=== PATIENT | female | born 1975 | race Caucasian/White ===

== ENCOUNTER 2022-12-29 17:10 | Emergency (ER) | payer BC, SELFPAY ==
--- NOTE | ~2022-12-29 | XR_ITS ---
AP and oblique views of the left ribs, and PA and lateral chest radiographs Clinical History: Pain Findings: No rib fracture is seen. Osseous alignment is anatomic. Lungs are clear, without focal cons olidation or pleural effusion. Cardiomediastinal contour is within normal limits. Soft tissues are un remarkable. Impression: No rib fracture is seen. Reviewed, dictated and finalized at [facility]. Impression: No rib fracture is seen.
[2022-12-29 17:12] VITALS: BP 156/82; PULSE 85; RESP 18; TEMP 36.8; O2SAT 100
--- NOTE | 2022-12-29 17:24 | ECG_ITS ---
Measurements Intervals [place] Rate: 85 P: 74 DE: 133 QRS: 62 QRSD: 69 T: 55 QT: 345 QTc: 412 Interpretive Statements SINUS RHYTHM NORMAL ECG NO PREVIOUS ECG AVAILABLE FOR COMPARISON Electronically Signed On 12-30-2022 6:59:39 CDT by Jez Garcia D.O.
--- NOTE | 2022-12-29 17:26 | ED.BACK ---
HPI - Back Pain/Injury General Chief Complaint: Back Pain/Injury Stated Complaint: back pain Time Seen by Provider: 12/29/22 17:16 Source: patient Mode of arrival: ambulatory Limitations: no limitations History of Present Illness HPI Narrative: This is a 47-year-old female that presents to the emergency department for left-sided mid back pain present over the last couple of days. Reports on Thursday [place] No certain injuries or trauma. Later that night she started to feel some left-sided lateral chest pain. This then radiated into her back. She has a constant burning pain in the area. Intermittently is more sharp with certain movements. She has been taking Tylenol for pain. Denies fever, cough, shortness of breath, dysuria, or hematuria. Related Data Allergies Allergy/AdvReac Type Severity Reaction Status Date / Time No Known Allergies Allergy Mild Verified 12/29/22 17:54 Review of Systems Review of Systems: CONSTITUTIONAL: Denies fever CARDIOVASCULAR: Denies edema. RESPIRATORY: Denies cough or dyspnea. GENITOURINARY: Denies dysuria or hematuria. SKIN: Denies rash MUSCULOSKELETAL: Reports back pain, joint pain, and myalgia. NEUROLOGIC: Denies numbness, or weakness. All systems reviewed & are unremarkable except as noted in HPI and below PMFSH Past Medical History Medical History (Updated 12/29/22 @ 18:44 by Barby Silverman PA-C) No active medical problems Surgical History Surgical History (Updated 12/29/22 @ 17:28 by Barby Silverman PA-C) History of nephrectomy Social History Social History (Updated 12/29/22 @ 17:29 by Barby Silverman PA-C) Smoking status: Current every day smoker Exam Narrative: GENERAL: Well-appearing, well-nourished, and in no acute distress. HEAD: Normocephalic, atraumatic. EYES: EOMI. ENT: Nares clear, no rhinorrhea or epistaxis. Mucous membranes moist. Oropharynx without tonsillar hypertrophy exudate or other lesions. Bilateral TMs pearly erickson non-bulging NECK: Supple. No adenopathy or masses. CHEST: Clear to auscultation. No respiratory distress. No wheezes rales or rhonchi HEART: Regular rate and rhythm. No murmur heard. Normal peripheral pulses. BACK: No midline spinal tenderness. Tender to palpation of left paraspinal musculature EXTREMITIES: Normal range of motion. No edema. Strength equal in bilateral upper extremities (5/5) SKIN: Warm, dry, no rash. NEURO: No focal deficits. Alert and oriented x3. PSYCH: Normal mood and affect Course Course Emergency Course: Patient and family updated on workup and agree with plan of care Vital Signs Vital signs: Vital Signs Temperature 98.2 F 12/29/22 17:12 Pulse Rate 85 12/29/22 17:12 Respiratory Rate 18 12/29/22 17:12 Blood Pressure 156/82 H 12/29/22 17:12 Pulse Oximetry 100 12/29/22 17:12 Oxygen Delivery Room Air 12/29/22 17:12 Temperature 98.2 F 12/29/22 17:12 Pulse Rate 85 12/29/22 17:12 Respiratory Rate 18 12/29/22 17:12 Blood Pressure 156/82 H 12/29/22 17:12 Pulse Oximetry 100 12/29/22 17:12 Oxygen Delivery Room Air 12/29/22 17:12 MDM - Back Pain/Injury MDM Narrative Medical decision making narrative: Patient presents to the ER for left sided mid back pain present over the last 2 days after [place] No known specific injury. She is neurologically intact. Her vitals are stable. CBC and metabolic panel without concerning findings. EKG without concerning changes and baseline troponin is negative. Her bedside test is negative. Left rib/chest x-ray without acute cardiopulmonary abnormality or evidence of rib fracture. Patient and family were updated on work-up. She was instructed on further care of muscle strain. She is to follow-up with her primary provider. She was given warnings to return to the ER Differential Diagnosis Differential diagnosis: Likely renal colic, thoracic back pain and other (musc
[2022-12-29 17:54] LABS: Basophils Absolute Auto 0.1 K/mm3 (0.0-0.1); Basophils Percent Auto 0.6 % (0.2-1.2); Eosinophils Absolute Auto 0.2 K/mm3 (0-0.3); Eosinophils Percent Auto 2.5 % (0-4.4); Hematocrit 36.3 % (37.0-47.0); Hemoglobin 12.3 g/dL (12.0-15.0); Immature Granulocyte Absolute 0.01 K/mm3 (0.00-0.031); Immature Granulocyte Percent A 0.1 % (0-0.5); Lymphocytes Absolute Auto 2.19 K/mm3 (0.9-3.2); Lymphocytes Percent Auto 24.6 % (18.3-44.2); Mean Corpuscular HGB Conc 33.9 g/dl (32-36); Mean Corpuscular Hemoglobin 34.7 pg (26-34); Mean Corpuscular Volume 102.5 fl (80-100); Mean Platelet Volume 9.1 fl (7.4-10.4); Monocytes Absolute Auto 1.2 K/mm3 (0.1-0.6); Monocytes Percent Auto 13.8 % (2.6-8.5); Neutrophils Absolute Auto 5.2 K/mm3 (1.3-6.7); Neutrophils Percent Auto 58.4 % (45.5-73.1); Platelet Count Result 260 k/mm3 (150-375); Red Blood Count 3.54 M/mm3 (4.2-5.4); Red Cell Distribution Width 12.8 % (11.5-14.5); White Blood Count 8.9 K/mm3 (4.5-10.0)
[2022-12-29] MEDS: ACETAMINOPHEN 500 MG TABLET 1000 MG PO (17:55)
[2022-12-29] MEDS: CYCLOBENZAPRINE HCL 10 MG TABLET PO (17:55)
[2022-12-29 18:05] LABS: Anion Gap 6 mmol/L (8-16); Blood Urea Nitrogen 12 mg/dL (7-17); Carbon Dioxide 27 mmol/L (22-30); Chloride 105 mmol/L (98-107); Estimated CRCL calculation 69 ml/min; Estimated Glomerular Filt Rate > 60; Glucose 97 mg/dL (65-110); Potassium 4.2 mmol/L (3.4-5.0); Sodium 138 mmol/L (137-145)
[2022-12-29 18:17] LABS: Troponin I < 0.012 ng/mL (0.000-0.034)
== END 2022-12-29 19:20 | disposition home or self-care (01) ==
PROVIDERS: Emergency Provider Physician Assistant
DX: S29.019A Strain of muscle and tendon of unspecified wall of thorax, initial encounter (principal); X58.XXXA Exposure to other specified factors, initial encounter
CPT/HCPCS: 36415; 69210; 71046; 71100; 80048; 81025; 84484; 85025; 93005; 99284; A9270